=== PATIENT | female | born 2000 | race Caucasian/White ===

== ENCOUNTER 2019-05-24 13:42 | Emergency (ER) | payer OTHER, SELFPAY ==
[2019-05-24 13:48] VITALS: BP 163/82; PULSE 101; RESP 16; TEMP 37.6; O2SAT 100
--- NOTE | 2019-05-24 14:50 | ED.GENADULT ---
HPI - General Adult General Chief complaint: Upper Respiratory Infection <Amarjit Galicia PA-C - Last Filed: 05/24/19 14:58> Stated complaint: ST, SOB, weakness <Amarjit Galicia PA-C - Last Filed: 05/24/19 14:58> Time Seen by Provider: 05/24/19 13:50 <Amarjit Galicia PA-C - Last Filed: 05/24/19 14:58> Source: patient <Amarjit Galicia PA-C - Last Filed: 05/24/19 14:58> Mode of arrival: ambulatory <Amarjit Galicia PA-C - Last Filed: 05/24/19 14:58> Limitations: no limitations <Amarjit Galicia PA-C - Last Filed: 05/24/19 14:58> History of Present Illness HPI narrative: Patient is a 18-year-old female who presents to emergency department for evaluation of upper respiratory symptoms for the last several days notes that she has had sore throat congestion rhinorrhea cough productive of green phlegm. Patient notes she has been working but denies any known sick contacts. Patient notes feeling dyspneic patient denies vomiting or diarrhea . <Amarjit Galicia PA-C - Last Filed: 05/24/19 14:58> Related Data Allergies/adverse reactions: Allergies Allergy/AdvReac Type Severity Reaction Status Date / Time bupropion Allergy Unknown Depression Verified 05/24/19 13:51 duloxetine Allergy Unknown Depression Verified 05/24/19 13:51 <Amarjit Galicia PA-C - Last Filed: 05/24/19 14:58> Review of Systems Review of Systems: All systems reviewed & are unremarkable except as noted in HPI and below <Amarjit Galicia PA-C - Last Filed: 05/24/19 14:58> PMFSH Social History Social History: Social History (Updated 05/24/19 @ 14:51 by Amarjit Galicia PA-C) Smoking status: Never smoker <Amarjit Galicia PA-C - Last Filed: 05/24/19 14:58> Exam Narrative: Exam Narrative: GENERAL: Well-appearing, well-nourished, and in no acute distress. HEAD: Normocephalic, atraumatic. EYES: PERRLA and EOMI. ENT: Nares clear, no rhinorrhea or epistaxis. Mucous membranes moist. Oropharynx with erythema without tonsillar hypertrophy exudate or other lesions. NECK: Supple. No adenopathy or masses. CHEST: Clear to auscultation. No respiratory distress. No wheezes rales or rhonchi HEART: Regular rate and rhythm. No murmur heard. EXTREMITIES: Normal range of motion. No edema. SKIN: Warm, dry, no rash. NEURO: No focal deficits. Alert and oriented x3. Cranial nerves II through XII grossly intact PSYCH: Normal mood and affect. <JEN Burroughs Last Filed: 05/24/19 14:58> Course Course Emergency Course: Patient in the room in no distress aware of case findings treatment plan and diagnosis agreeing to follow-up as directed or to return if symptoms worsen or concerns <JEN Burroughs Last Filed: 05/24/19 14:58> Vital Signs Vital signs: Vital Signs Temperature 99.6 F 05/24/19 13:48 Pulse Rate 101 H 05/24/19 13:48 Respiratory Rate 16 05/24/19 13:48 Blood Pressure 163/82 H 05/24/19 13:48 Pulse Oximetry 100 05/24/19 13:48 Temperature 99.6 F 05/24/19 13:48 Pulse Rate 80 05/24/19 15:06 Respiratory Rate 18 05/24/19 15:06 Blood Pressure 103/74 05/24/19 15:06 Pulse Oximetry 100 05/24/19 15:06 <JEN Burroughs Last Filed: 05/24/19 14:58> Vital Signs Temperature 99.6 F 05/24/19 13:48 Pulse Rate 101 H 05/24/19 13:48 Respiratory Rate 16 05/24/19 13:48 Blood Pressure 163/82 H 05/24/19 13:48 Pulse Oximetry 100 05/24/19 13:48 Temperature 99.6 F 05/24/19 13:48 Pulse Rate 80 05/24/19 15:06 Respiratory Rate 18 05/24/19 15:06 Blood Pressure 103/74 05/24/19 15:06 Pulse Oximetry 100 05/24/19 15:06 <Elena Harris MD - Last Filed: 05/24/19 15:33> Medical Decision Making MDM Narrative Medical decision making narrative: Patient in the room afebrile nontoxic-appearing no distress aware of case findings treatment plan and diagnosis agreeing to follow-up as directed or to return
[2019-05-24 15:06] VITALS: BP 103/74; PULSE 80; RESP 18; O2SAT 100
== END 2019-05-24 15:16 | disposition home or self-care (01) ==
PROVIDERS: Emergency Provider Emergency Medicine
DX: J06.9 Acute upper respiratory infection, unspecified (principal)
CPT/HCPCS: 87081; 87880; 99283

== ENCOUNTER 2019-11-25 16:52 | Emergency (ER) | payer OTHER, SELFPAY ==
[2019-11-25 16:55] VITALS: BP 123/77; PULSE 93; RESP 18; TEMP 36.5; O2SAT 100
--- NOTE | 2019-11-25 17:04 | ED.GENADULT ---
HPI - General Adult General Chief complaint: Headache Stated complaint: migrane rahman, being treated for kidney infection Time Seen by Provider: 11/25/19 16:58 Source: patient History of Present Illness HPI narrative: Patient is a 18 y/o female complaining of generalized headache for 5 days. She describes her pain as pounding , and rates it as 10/10. She took Excedrin and Ibuprofen, which did not help. Of note, she was seen at [facility] 2 days ago for right flank pain and was diagnosed with a kidney infection and prescribed with Cipro. She states that her headache is worsen since that visit. She stats that she had a fever when she was seen for kidney infection, but she is not sure whether she still has a fever. She has some nausea and vomiting. She denies any neck pain or stiffness. Related Data Allergies Allergy/AdvReac Type Severity Reaction Status Date / Time bupropion Allergy Unknown Depression Verified 05/24/19 13:51 duloxetine Allergy Unknown Depression Verified 05/24/19 13:51 Review of Systems Constitutional: Constitutional: Reports as per HPI, Denies chills, Denies fever(s), Reports headache(s) and Denies weakness Eyes: Eyes: Denies blurry vision ENT: Reports headache(s) and Denies neck pain Cardiovascular: Cardiovascular: Denies chest pain and Denies dyspnea Respiratory: Respiratory: Denies cough and Denies dyspnea Gastrointestinal: Gastrointestinal: Denies abdominal pain, Denies diarrhea, Reports nausea and Reports vomiting Genitourinary: Genitourinary: Denies hematuria, Denies dysuria and Reports flank pain Musculoskeletal: Musculoskeletal: Denies back pain and Denies neck pain Neurologic: Reports headache(s) and Denies weakness [facility] Social History Social History Smoking status: Never smoker Exam Const: General: no acute distress and well developed Orientation/consciousness: oriented to person, oriented to place, oriented to time and patient oriented x3 HENMT: Head: normocephalic Ears: external ears normal General nose exam: Normal external nose present Eyes: General: appearance normal, both eyes and all related structures Conjunctivae: conjunctivae normal Neck: Neck: normal visual inspection and full ROM Chest: Chest palpation & inspection: normal inspection of the chest and no tenderness Resp: Effort & Inspection: normal respiratory effort Auscultation: clear to auscultation bilaterally Cardio: Rate: regular rate Rhythm: regular rhythm GI: GI Palp: No abdominal tenderness and Yes Soft to palpation Skin: General skin exam: normal color and turgor normal Neuro: General: oriented to person, oriented to place, oriented to time and patient oriented x3 Cranial nerves: Yes CN's II-XII intact bilaterally Cognition (Neuro): normal cognition Speech: normal speech Motor exam (neuro): 5/5 motor strength present throughout Sensory Exam: normal sensation Coordination: [id number] test normal and [id number]-[id number] test normal Extrem: General: normal to inspection, full ROM and no pedal edema Psych: Appearance: grossly normal Mental Status: mental status grossly normal Affect: normal affect Course Reevaluation(s) Reevaluation #1: Rechecked. Patient feels better. She states that her headache is resovled. Date: 11/25/19 Time: 18:40 Vital Signs Vital signs: Vital Signs Temperature 36.5 C 11/25/19 16:55 Pulse Rate 93 11/25/19 16:55 Respiratory Rate 18 11/25/19 16:55 Blood Pressure 123/77 11/25/19 16:55 Pulse Oximetry 100 11/25/19 16:55 Temperature 36.5 C 11/25/19 16:55 Pulse Rate 78 11/25/19 19:19 Respiratory Rate 18 11/25/19 19:19 Blood Pressure 132/78 11/25/19 19:19 Pulse Oximetry 99 11/25/19 19:19 Medical Decision Making Vital Signs Vital Signs: Vital Signs Temperature 36.5 C 11/25/19 16:55 Pulse Rate 93 11/25/19 16:55 Respiratory Rate 18 11/25/19 16:55 Blood Pressure 123/
[2019-11-25] MEDS: SODIUM CHLORIDE 0.9% IV 1,000 ML 999 ML IV CONT (17:27)
[2019-11-25] MEDS: KETOROLAC 30 MG/ML VIAL (*BKC) IV PUSH (17:28)
[2019-11-25] MEDS: METOCLOPRAMIDE HCL INJ 10 MG/2 ML VIAL IV PUSH (17:28)
[2019-11-25] MEDS: diphenhydrAMINE HCl INJ 50 MG/ML VIAL 25 MG IV PUSH (17:28)
[2019-11-25 17:35] LABS: Basophils Percent Auto 0.4 % (0.2-1.2); Eosinophils Percent Auto 0.4 % (0-4.4); Hematocrit 42.4 % (37.0-47.0); Hemoglobin 14.4 g/dL (12.0-15.0); Immature Granulocyte Absolute 0.03 K/mm3 (0.00-0.031); Immature Granulocyte Percent A 0.4 % (0-0.5); Lymphocytes Absolute Auto 1.24 K/mm3 (0.9-3.2); Lymphocytes Percent Auto 15.9 % (18.3-44.2); Mean Corpuscular Hemoglobin 30.4 pg (26-34); Mean Corpuscular Volume 89.5 fl (80-100); Mean Platelet Volume 11.5 fl (7.4-10.4); Monocytes Absolute Auto 0.9 K/mm3 (0.1-0.6); Monocytes Percent Auto 11.8 % (2.6-8.5); Neutrophils Absolute Auto 5.5 K/mm3 (1.3-6.7); Neutrophils Percent Auto 71.1 % (45.5-73.1); Platelet Count Result 196 k/mm3 (150-375); Red Blood Count 4.74 M/mm3 (4.2-5.4); Red Cell Distribution Width 11.7 % (11.5-14.5); White Blood Count 7.8 K/mm3 (4.5-10.0)
[2019-11-25 17:45] LABS: Alanine Aminotransferase 11 U/L (4-35); Albumin Level 4.4 g/dL (3.7-5.6); Alkaline Phosphatase 74 U/L (45-116); Anion Gap 14 mmol/L (8-16); Aspartate Amino Transferase 18 U/L (14-36); Bilirubin,Total 1.3 mg/dL (0.2-1.3); Blood Urea Nitrogen 8 mg/dL (8-21); Calcium 9.8 mg/dL (8.9-10.7); Carbon Dioxide 21 mmol/L (22-30); Chloride 102 mmol/L (98-107); Estimated CRCL calculation 98 ml/min; Estimated Glomerular Filt Rate > 60; Glucose 92 mg/dL (65-105); Potassium 3.8 mmol/L (3.4-5.0); Sodium 137 mmol/L (134-143)
[2019-11-25 17:45] LABS: Add Urine Microscopic? YES; Appearance Urine Clear (Clear); Bacteria Urine Trace /hpf; Bilirubin Urine Negative (Negative); Blood Urine 1+ (Negative); Color Urine Yellow (Yellow); Glucose Urine UA Negative (Negative); Ketones Urine 2+ mg/dL (Negative); Leukocyte Esterase Ur Negative LEU/UL (Negative); Mucus Urine Rare /lpf; Nitrate Urine Negative (Negative); Protein Urine Negative (Negative); Specific Grav Ur 1.013 (1.001-1.035); Squamous Epithelial Cell Urine Many /hpf (Few); Urobilinogen Urine Negative mg/dL (<2.0)
[2019-11-25 19:19] VITALS: BP 132/78; PULSE 78; RESP 18; O2SAT 99
== END 2019-11-25 19:20 | disposition home or self-care (01) ==
PROVIDERS: Emergency Provider Emergency Medicine
DX: R51.9 Headache, unspecified (principal)
CPT/HCPCS: 36415; 80053; 81001; 81025; 85025; 96361; 96374; 96375; 99284; J1200; J1885; J2765; J7030

== ENCOUNTER 2021-01-06 19:10 | Inpatient (IN) | payer OTHER, SELFPAY ==
[2021-01-06] VITALS (29 sets, daily range): BP systolic 117–219; BP diastolic 60–201; PULSE 65–97; TEMP 37.2; O2SAT 97–100; BMI 37.8
--- NOTE | 2021-01-06 19:10 | LDADM ---
This patient, Mary Martinez, was admitted to Labor/Delivery/Recovery 104 on 01/06/21 at 19:10. Plans for labor, pain management and were discussed with patient. Patient/family oriented to hospital policies and general routines including ID bracelet, bed and alarms, visiting hours, pain management, procedures, bathroom and other care routines, personal items, smoking policy, room service/diet and guest tray routines, security routines, and visiting hours. Patient/Family are encouraged to report perceived risks to care and to ask questions if they do not understand what they are told or what they should do. See OBIX for further documentation.
[2021-01-06 20:40] LABS: Basophils Percent Auto 0.2 % (0.2-1.2); Eosinophils Absolute Auto 0.1 K/mm3 (0-0.3); Eosinophils Percent Auto 1.1 % (0-4.4); Hematocrit 39.9 % (37.0-47.0); Hemoglobin 12.9 g/dL (12.0-15.0); Immature Granulocyte Absolute 0.03 K/mm3 (0.00-0.031); Immature Granulocyte Percent A 0.3 % (0-0.5); Immature Platelet Fraction Pct 15.9 % (0.9-11.2); Lymphocytes Absolute Auto 1.68 K/mm3 (0.9-3.2); Mean Corpuscular HGB Conc 32.3 g/dl (32-36); Mean Corpuscular Hemoglobin 27.7 pg (26-34); Mean Corpuscular Volume 85.8 fl (80-100); Mean Platelet Volume 13.5 fl (7.4-10.4); Monocytes Absolute Auto 0.8 K/mm3 (0.1-0.6); Monocytes Percent Auto 7.3 % (2.6-8.5); Neutrophils Absolute Auto 7.9 K/mm3 (1.3-6.7); Neutrophils Percent Auto 75.1 % (45.5-73.1); Platelet Count Result 216 k/mm3 (150-375); Red Blood Count 4.65 M/mm3 (4.2-5.4); Red Cell Distribution Width 14.6 % (11.5-14.5); White Blood Count 10.5 K/mm3 (4.5-10.0)
[2021-01-06 21:07] LABS: Alanine Aminotransferase 14 U/L (4-35); Albumin Level 3.8 g/dL (3.5-5.1); Alkaline Phosphatase 139 U/L (38-126); Anion Gap 9 mmol/L (8-16); Aspartate Amino Transferase 31 U/L (14-36); Bilirubin,Total 0.9 mg/dL (0.2-1.3); Blood Urea Nitrogen 11 mg/dL (7-17); Calcium 9.3 mg/dL (8.4-10.2); Carbon Dioxide 20 mmol/L (22-30); Chloride 106 mmol/L (98-107); Estimated CRCL calculation 126 ml/min; Estimated Glomerular Filt Rate > 60; Glucose 97 mg/dL (65-110); Potassium 4.3 mmol/L (3.4-5.0); Sodium 135 mmol/L (137-145)
[2021-01-06] MEDS: LACTATED RINGERS 1,000 ML 125 ML IV CONT (22:54)
[2021-01-06 22:56] LABS: Uric Acid 4.7 mg/dL (2.5-7.5)
--- NOTE | 2021-01-06 23:19 | WPDANESEPP ---
Anes - Eval Pre Procedure Procedure: Labor epidural Date/Time: 01/06/21 23:19 Surgeon: Mary Kay Preop Diagnosis: Abd pain with contractions Pre Op Diagnosis: labor Patient Data Age: 20 Gender: F Height: 1.63 m Weight: 100 kg Last Vital Signs Pulse 83 01/06/21 23:16 BP 150/71 H 01/06/21 23:16 Allergies Allergy/AdvReac Type Severity Reaction Status Date / Time bupropion Allergy Unknown Depression Verified 05/24/19 13:51 duloxetine Allergy Unknown Depression Verified 05/24/19 13:51 Laboratory Tests 01/06/21 01/06/21 01/06/21 20:27 20:27 20:27 WBC 10.5 K/mm3 H K/mm3 (4.5-10.0) RBC 4.65 M/mm3 M/mm3 (4.2-5.4) Hgb 12.9 g/dL g/dL (12.0-15.0) Hct 39.9 % % (37.0-47.0) MCV 85.8 fl fl (80-100) MCH 27.7 pg pg (26-34) MCHC 32.3 g/dl g/dl (32-36) RDW 14.6 % H % (11.5-14.5) Plt Count 216 k/mm3 k/mm3 (150-375) MPV 13.5 fl H fl (7.4-10.4) Immature Gran % (Auto) 0.3 % % (0-0.5) Neut % (Auto) 75.1 % H % (45.5-73.1) Lymph % (Auto) 16.0 % L % (18.3-44.2) Owen % (Auto) 7.3 % % (2.6-8.5) Eos % (Auto) 1.1 % % (0-4.4) Baso % (Auto) 0.2 % % (0.2-1.2) Lymph # (Auto) 1.68 K/mm3 K/mm3 (0.9-3.2) Owen # (Auto) 0.8 K/mm3 H K/mm3 (0.1-0.6) Eos # (Auto) 0.1 K/mm3 K/mm3 (0-0.3) Baso # (Auto) 0.0 K/mm3 K/mm3 (0.0-0.1) Abs Immat Gran (auto) 0.03 K/mm3 K/mm3 (0.00-0.031) Absolute Neuts (auto) 7.9 K/mm3 H K/mm3 (1.3-6.7) Absolute Nucleated RBC 0.0 K/mm3 K/mm3 (0.0-0.012) Nucleated RBC % 0.0 % % (0.0-0.2) % Immature Plt Fraction 15.9 % H % (0.9-11.2) Sodium Potassium Chloride Carbon Dioxide Anion Gap BUN Creatinine Estim Creat Clear Calc Estimated GFR Glucose Uric Acid Calcium Total Bilirubin AST ALT Alkaline Phosphatase Total Protein Albumin RPR Pending Blood Type A Positive Antibody Screen Negative 01/06/21 01/06/21 20:27 20:27 WBC RBC Hgb Hct MCV MCH MCHC RDW Plt Count MPV Immature Gran % (Auto) Neut % (Auto) Lymph % (Auto) Owen % (Auto) Eos % (Auto) Baso % (Auto) Lymph # (Auto) Owen # (Auto) Eos # (Auto) Baso # (Auto) Abs Immat Gran (auto) Absolute Neuts (auto) Absolute Nucleated RBC Nucleated RBC % % Immature Plt Fraction Sodium 135 mmol/L L mmol/L (137-145) Potassium 4.3 mmol/L mmol/L (3.4-5.0) Chloride 106 mmol/L mmol/L (98-107) Carbon Dioxide 20 mmol/L L mmol/L (22-30) Anion Gap 9 mmol/L mmol/L (8-16) BUN 11 mg/dL mg/dL (7-17) Creatinine 0.70 mg/dL mg/dL (0.7-1.0) Estim Creat Clear Calc 126 ml/min ml/min Estimated GFR > 60 (59 - ) Glucose 97 mg/dL mg/dL (65-110) Uric Acid 4.7 mg/dL mg/dL (2.5-7.5) Calcium 9.3 mg/dL mg/dL (8.4-10.2) Total Bilirubin 0.9 mg/dL mg/dL (0.2-1.3) AST 31 U/L U/L (14-36) ALT 14 U/L U/L (4-35) Alkaline Phosphatase 139 U/L H U/L (38-126) Total Protein 7.0 g/dL g/dL (6.3-8.2) Albumin 3.8 g/dL g/dL (3.5-5.1) RPR Blood Type Antibody Screen Patient hx anesthesia problems: none Family hx anesthesia problems: none Results Review: All pre-operative results and documents have been reviewed as part of the pre-operative evaluation. [facility] Past
[2021-01-07] VITALS (120 sets, daily range): BP systolic 116–145; BP diastolic 62–107; PULSE 67–104; RESP 18; TEMP 36.7–37.1; O2SAT 94–100
[2021-01-07 06:38] LABS: Rapid Plasma Reagin Non-Reactive (NonReactive)
--- NOTE | 2021-01-07 06:57 | WPDOBADMIT ---
Obstetrics - Admit Note Admission Note: record reviewed. No pertinent additions to the history and/or any subsequent changes in the physical findings that are not consistent with the expected course of the were found. admitted to in active labor. SVE , AROM large amount of meconium fluid. Additions to the history and/or subsequent changes in the physical findings follow. None.
--- NOTE | 2021-01-07 07:50 | PM.OBPRVD ---
OB - Delivery Note Procedure Delivery date: 01/07/21 Procedure: vaginal delivery Intrapartal events: None Induction method: none Delivery augmentation: rupture of membranes Delivery monitor: none, external FHT and external uterine Route of delivery: Episiotomy description: None Laceration Description: Labial (bilateral) Delivery repair: vicryl Quantitative Blood Loss (ml): 95 Anesthesia type: Epidural Disposition: floor Baby Date of : 01/07/21 Time of : 07:30 Weeks of gestation at delivery: 38 Infant gender: Male Weight (pounds): 7 Weight (ounces): 9 presentation: vertex position: Left Occiput Anterior Placenta delivery description: Spontaneous cord vessel description: 3 Vessels and Delayed Cord Clamping score one minute: 9 score five minutes: 9 Narrative: mother and baby in stable condition to warmer for evaluation for meconium
[2021-01-07] MEDS: OXYTOCIN 30 UNITS/NS 500 ML 30 UNITS/500 ML BAG 125 UNITS IV CONT (08:11)
[2021-01-07] MEDS: IBUPROFEN 600 MG TABLET PO ×2 (10:49→20:38)
[2021-01-07] MEDS: WITCH HAZEL 40 PADS 1 PAD TOPICAL (10:50)
[2021-01-07] MEDS: BENZOCAINE 20% AER SPR (*SP) 56 GM CAN 1 SPRAY TOPICAL (10:50)
--- NOTE | 2021-01-07 16:59 | PC.NURSE ---
Patient transferred to post room #291 ambulatory from labor and delivery. Support person present. Oriented to unit, room, information board, rooming in, admission packet and security measures. Patient verbalizes understanding.
[2021-01-08 03:40] VITALS: BP 111/69; PULSE 68; RESP 16; TEMP 36.2; O2SAT 100
[2021-01-08 04:51] LABS: Hematocrit 27.7 % (37.0-47.0)
[2021-01-08 08:00] VITALS: BP 131/90; PULSE 73; RESP 20; TEMP 36.3; O2SAT 100
[2021-01-08] MEDS: DOCUSATE SODIUM 100 MG CAPSULE PO ×2 (08:19→15:03)
[2021-01-08] MEDS: POLYSACCHARIDE IRON COMPLEX 150 MG CAPSULE PO ×2 (08:19→15:04)
[2021-01-08] MEDS: IBUPROFEN 600 MG TABLET PO ×3 (08:20→23:32)
--- NOTE | 2021-01-08 12:10 | P.PNOB_ITS ---
OB - PN: Subj Subjective Date/time seen: 01/08/21 12:10 Patient comments: no complaints and pain well controlled baby status: doing well [place] feeding status: exclusively bottle feeding OB - PN: Obj Data Labs CBC & Chem 7: 01/08/21 04:00 01/06/21 20:27 Labs: Laboratory Results - last 24 hr 01/08/21 04:00 Hgb 9.0 L D Hct 27.7 L OB - PN A/P Assessment and Plan (1) , delivered: Code(s): O80 - Encounter for full-term uncomplicated delivery Status: Acute Plan day: 1 Plan: routine care Time Spent With Patient Time: Total time spent is greater than 50% in coordination of care (as documented) at patient's floor/unit and/or counseling patient: Time with patient: less than 15 minutes Exam Narrative: NAD abdomen soft, nontender, fundus firm below the umbilicus Extremities nontender, 1+ edema
--- NOTE | 2021-01-08 14:21 | WPDANLDPN2 ---
Anes-Prog Note L&D Date/Time: 01/08/21 14:21 Comfortable throughout: labor and delivery Neuraxial method: epidural Epidural/Spinal procedure site: clean & non-tender Neuro status: Neuro function grossly intact. Cardiovascular status: normal Respiratory status: normal Airway patency: baseline Mental status: baseline Post-Op hydration status: normal Vital Signs: Last Vital Signs Temp 36.3 C L 01/08/21 08:00 Pulse 73 01/08/21 08:00 Resp 20 01/08/21 08:00 BP 131/90 01/08/21 08:00 Pulse Ox 100 01/08/21 08:00 Pain score (VAS): 0 Post-procedural complaints: none Patient feedback: Patient satisfied with anesthetic care.
[2021-01-08] MEDS: BENZOCAINE 20% AER SPR (*SP) 56 GM CAN 1 SPRAY TOPICAL (15:03)
[2021-01-08] MEDS: WITCH HAZEL 40 PADS 1 PAD TOPICAL (15:04)
[2021-01-08 19:50] VITALS: BP 139/85; PULSE 85; RESP 16; TEMP 36.9; O2SAT 99
--- NOTE | 2021-01-08 23:45 | PC.NURSE ---
Patient viewed the discharge video Mother & Baby Care, The First Two Weeks . Patient was given the opportunity and encouraged to ask questions. Patient verbalized understanding of information shared and has been given the mother/baby guide for home reference.
[2021-01-09] MEDS: IBUPROFEN 600 MG TABLET PO (07:48)
[2021-01-09 08:00] VITALS: BP 133/85; PULSE 66; PULSE 85; RESP 16; RESP 18; TEMP 36.7; O2SAT 100
[2021-01-09] MEDS: WITCH HAZEL 40 PADS 1 PAD TOPICAL (08:00)
[2021-01-09] MEDS: DOCUSATE SODIUM 100 MG CAPSULE PO (08:00)
[2021-01-09] MEDS: POLYSACCHARIDE IRON COMPLEX 150 MG CAPSULE PO (08:00)
[2021-01-09] MEDS: BENZOCAINE 20% AER SPR (*SP) 56 GM CAN 1 SPRAY TOPICAL (08:00)
--- NOTE | 2021-01-09 10:28 | PC.NURSE ---
Self care and infant care discharge instructions given including follow up visit date and time. Mother verbalized understanding. No questions or concerns voiced. Very pleasant and cooperative. FOB at side.
--- NOTE | 2021-01-09 10:33 | P.PNOB_ITS ---
OB - PN: Subj Subjective Date/time seen: 01/09/21 10:33 Patient comments: no complaints baby status: doing well [place] feeding status: exclusively bottle feeding OB - PN: Obj Data Labs CBC & Chem 7: 01/08/21 04:00 01/06/21 20:27 OB - PN A/P Assessment and Plan (1) , delivered: Code(s): O80 - Encounter for full-term uncomplicated delivery Status: Acute Plan day: 2 Plan: routine care and discharge home Time Spent With Patient Time: Total time spent is greater than 50% in coordination of care (as documented) at patient's floor/unit and/or counseling patient: Time with patient: less than 15 minutes Exam Narrative: NAD abdomen soft, nontender, fundus firm below the umbilicus Extremities nontender, 1+ edema
--- NOTE | 2021-01-09 10:34 | P.DS_ITS ---
DS: Admitting Diagnosis Discharge Date 01/09/21 Admitting Diagnosis term IUP DS: Discharge Diagnosis Discharge Diagnosis (1) , delivered: Code(s): O80 - Encounter for full-term uncomplicated delivery Status: Acute DS: Summary Hospital Course Hospital Course: Mary had an uncomplicated vaginal delivery and course. Status at Discharge Functional status at discharge: independent ambulation Time Spent with Patient Time attestation: Total time spent providing and/or coordinating discharge services: Exam Narrative: NAD abdomen soft, appropriately tender Ext non tender, 1+ edema Discharge Plan Discharge Attending physician on discharge: Mindi Muñiz Discharging Clinician: Mindi Muñiz Anticipated Discharge Date/Time: 01/09/21 10:33 Patient Disposition: Home, Self-Care Activity: pelvic rest Diet: regular Patient Instructions: Antibiotic Form Stand Alone Forms: General Discharge Information Follow-up/Referrals: Mindi Muñiz MD [Physician] - 1 Week Discharge Medications: Continued Classic 28 mg iron- 800 mcg Tablet 1 tablet PO DAILY RF: 0 Date of admission: 01/06/21 19:10 Primary Care Provider: PHYSICIAN,AUTOMATED PROCESS OPERATOR Admitting Provider: Mindi Muñiz Attending physician on admission: Mindi Muñiz Condition: Stable
[2021-01-11 09:15] VITALS: BP 125/83; PULSE 67; RESP 16; TEMP 36.8; O2SAT 100
== END 2021-01-09 13:15 | disposition home or self-care (01) | DRG 560 ==
LOC: ANHLDR 20:51 → ANHOB2 01-07 17:03
PROVIDERS: Advanced Practice Midwife; Admitting Provider Obstetrics & Gynecology; Visit Provider Obstetrics & Gynecology
DX: O77.0 Labor and delivery complicated by meconium in amniotic fluid (principal); Z37.0 Single live birth; Z3A.39 39 weeks gestation of pregnancy; O36.8330 Maternal care for abnormalities of the fetal heart rate or rhythm, third trimester, not applicable or unspecified; O99.344 Other mental disorders complicating childbirth; F41.8 Other specified anxiety disorders; F31.9 Bipolar disorder, unspecified; O70.0 First degree perineal laceration during delivery
CPT/HCPCS: 36415; 80053; 84550; 85014; 85018; 85025; 85055; 86592; 86850; 86900; 86901; A9270; J2590; J2795; J7120

== ENCOUNTER 2023-03-31 17:56 | Emergency (ER) | payer OTHER, SELFPAY ==
[2023-03-31 18:05] VITALS: BP 114/73; PULSE 87; RESP 16; TEMP 36.7; O2SAT 99
--- NOTE | 2023-03-31 18:06 | ED.NAVMDI ---
HPI - Nausea/Vomiting/Diarrhea General Chief complaint: Nausea/Vomiting/Diarrhea Stated complaint: Fatigue/Nausea Time Seen by Provider: 03/31/23 18:06 Source: patient Mode of arrival: ambulatory Limitations: no limitations History of Present Illness HPI Narrative: 32-year-old female presents with complaint of fatigue, headaches, nausea and diarrhea for 5 days. Afebrile. No abdominal pain. Has not vomited. Drinking plenty of water but states has had decreased appetite. Patient reports that she is currently working 2 jobs. 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 Patient reports that she has been very exhausted. Recently called primary care physician for medication to help her sleep. Start Ambien 4 days ago. does not think that symptoms are related to taking Ambien. Patient requesting work note. States she cannot his work and wants to go back tomorrow. All systems reviewed and negative except as noted. Related Data Home Medications Medication Instructions Recorded Confirmed clonazepam 1 mg tablet 0.5 - 1 mg PO PRN PRN Anxiety 03/31/23 03/31/23 escitalopram oxalate 20 mg tablet 20 mg PO DAILY 03/31/23 03/31/23 norethindrone (contraceptive) 0.35 0.35 mg PO DAILY 03/31/23 03/31/23 mg tablet zolpidem 5 mg tablet 5 mg PO HS PRN Sleep 03/31/23 03/31/23 Allergies Allergy/AdvReac Type Severity Reaction Status Date / Time amoxicillin AdvReac Unknown Numbness Verified 03/31/23 18:20 bupropion AdvReac Unknown Depression Verified 03/31/23 18:20 duloxetine AdvReac Unknown Depression Verified 03/31/23 18:20 Penicillins AdvReac Unknown Numbness Verified 03/31/23 18:20 Review of Systems Review of Systems: CONSTITUTIONAL: Denies fever, chills, or sweats. Reports fatigue. EYES: Denies visual changes, redness, or discharge. ENT: Denies rhinorrhea, congestion, sore throat, or otalgia. CARDIOVASCULAR: Denies chest pain, palpitations, or edema. RESPIRATORY: Denies cough or dyspnea. GASTROINTESTINAL: Denies abdominal pain And vomiting. Reports nausea, diarrhea. GENITOURINARY: Denies dysuria or hematuria. SKIN: Denies rash or itching. MUSCULOSKELETAL: Denies back pain, joint pain, or myalgia. NEUROLOGIC: Denies headache, numbness, or weakness. PSYCHIATRIC: Denies anxiety or depression. All other systems reviewed are negative, except as documented in HPI. FORMER[facility], [facility] Past Medical History Medical History Anxiety and depression Bipolar 1 disorder Migraines Morbid obesity and not yet delivered Pseudotumor cerebri syndrome Family History Family History Mother History of blood clots Diabetes mellitus Anxiety Depression Fibromyalgia Vertigo Bipolar 1 disorder Sleep apnea Father Depression Bipolar 1 disorder Sibling ADHD ADD (attention deficit disorder) Social History Social History Smoking packs per day: 0.5 Smoking cigarettes per day: 10.0 Years smoked: 4 Smoking pack-years: 2.00 Smoking status: Former smoker Substance use: never Spiritual care concerns: No Course Course Level of Care: Express Care Visit Vital Signs Vital signs: Vital Signs Temperature 36.7 C 03/31/23 18:05 Pulse Rate 87 03/31/23 18:05 Respiratory Rate 16 03/31/23 18:05 Blood Pressure 114/73 03/31/23 18:05 Pulse Oximetry 99 03/31/23 18:05 Oxygen Delivery Room Air 03/31/23 18:05 Temperature 36.7 C 03/31/23 18:20 Pulse Rate 87 03/31/23 18:20 Respiratory Rate 16 03/31/23 18:20 Blood Pressure 114/73 03/31/23 18:20 Pulse Oximetry 99 03/31/23 18:20 Oxygen Delivery Room Air 03/31/23 18:20 Reviewed MDM - Nausea/Vomiting/Diarrhea MDM Narrative Medical decision making narrative: negative influenza. Patient prescribed Imodium and Zofran for
[2023-03-31 18:20] VITALS: BP 114/73; PULSE 87; RESP 16; TEMP 36.7; O2SAT 99
== END 2023-03-31 19:00 | disposition home or self-care (01) ==
PROVIDERS: Emergency Provider Nurse Practitioner Family; PCP Physician Assistant
DX: A08.4 Viral intestinal infection, unspecified (principal); Z87.891 Personal history of nicotine dependence; E66.01 Morbid (severe) obesity due to excess calories; Z68.33 Body mass index [BMI] 33.0-33.9, adult; F41.9 Anxiety disorder, unspecified; F32.A Depression, unspecified
CPT/HCPCS: 87804; 99213; G0463

== ENCOUNTER 2023-11-26 13:44 | Emergency (ER) | payer OTHER, SELFPAY ==
--- NOTE | 2023-11-26 13:48 | ED.GENADULT ---
HPI - General Adult General Chief complaint: Nausea/Vomiting/Diarrhea Stated complaint: Nausea Time Seen by Provider: 11/26/23 14:20 Source: patient and RN notes reviewed Mode of arrival: ambulatory Limitations: no limitations History of Present Illness HPI narrative: 22-year-old female presents concern for nausea for about 5 days. She reports she has been taking Zofran which helps the nausea temporarily. She denies abdominal pain, vomiting, diarrhea. She is unsure of her last menstrual period. Reports body aches. She denies fever, chills, sweats. Related Data Home Medications Medication Instructions Recorded Confirmed clonazepam 1 mg tablet 0.5 - 1 mg PO PRN PRN Anxiety 03/31/23 11/26/23 escitalopram oxalate 20 mg tablet 20 mg PO DAILY 03/31/23 11/26/23 norethindrone (contraceptive) 0.35 0.35 mg PO DAILY 03/31/23 11/26/23 mg tablet zolpidem 5 mg tablet 5 mg PO HS PRN Sleep 03/31/23 11/26/23 ferrous sulfate 325 mg (65 mg 325 mg PO DAILY 11/26/23 11/26/23 iron) tablet (FeroSul) Allergies Allergy/AdvReac Type Severity Reaction Status Date / Time amoxicillin AdvReac Unknown Numbness Verified 11/26/23 13:48 bupropion AdvReac Unknown Depression Verified 11/26/23 13:48 duloxetine AdvReac Unknown Depression Verified 11/26/23 13:48 Penicillins AdvReac Unknown Numbness Verified 11/26/23 13:48 Review of Systems Review of Systems: CONSTITUTIONAL: Denies malaise, chills, sweats, or fever. ENT: Denies rhinorrhea, congestion, sinus pain, otalgia or sore throat. CARDIOVASCULAR: Denies chest pain, palpitations, or edema. RESPIRATORY: Denies cough or dyspnea. GASTROINTESTINAL: Denies abdominal pain, vomiting, diarrhea, bloody, or mucous stools. Reports nausea GENITOURINARY: Denies dysuria, frequency, urgency or hematuria. MUSCULOSKELETAL: Reports myalgia. NEUROLOGIC: Denies headache. All systems reviewed & are unremarkable except as noted in HPI and below PMFSH Past Medical History Medical History Anxiety and depression Bipolar 1 disorder Migraines Morbid obesity and not yet delivered Pseudotumor cerebri syndrome Family History Family History Mother History of blood clots Diabetes mellitus Anxiety Depression Fibromyalgia Vertigo Bipolar 1 disorder Sleep apnea Father Depression Bipolar 1 disorder Sibling ADHD ADD (attention deficit disorder) Social History Social History Smoking packs per day: 0.5 Smoking cigarettes per day: 10.0 Years smoked: 4 Smoking pack-years: 2.00 Smoking status: Former smoker Substance use: never Spiritual care concerns: No Comments At time of signature, agree with nursing past medical, surgical, social and family history. There is no relevant family history pertinent to the presenting complaint Exam Narrative: GENERAL: Well-appearing, well-nourished, and in no acute distress. HEAD: Normocephalic, atraumatic. EYES: PERRLA, conjunctivae clear, and EOMI. ENT: Nares clear, turbinates pink, no rhinorrhea or epistaxis. Mucous membranes moist. Oropharynx without edema, erythema, or lesions. Tonsils not enlarged and without exudate. NECK: Supple. No lymphadenopathy CHEST: Speaks in full sentences. No respiratory distress. HEART: Regular rate and rhythm. ABDOMEN: Soft, flat, nondistended, nontender. No guarding, rebound tenderness, or rigidity. No pulsatile masses. Bowel sounds present in all four quadrants. SKIN: Warm, dry, no rash. NEURO: Alert and oriented x3. PSYCH: Normal mood and affect Course Course Emergency Course: Patient is aware of diagnosis, understands and agrees to treatment plan. Anticipatory guidance given. Patient agrees to follow-up as directed and is aware of reasons to seek care at the emergency department. Portions of this record may have been cre
[2023-11-26 13:53] VITALS: BP 133/56; PULSE 73; RESP 20; TEMP 37.5; O2SAT 100
[2023-11-26 14:49] LABS: BEDSIDEPREGUCG Positive (Negative)
[2023-11-26 14:49] LABS: EDUAAPPEAR Cloudy; EDUABILI Negative (Negative); EDUABLOOD Negative (Negative); EDUACOLOR1 Dark; EDUAGLUCOSE Negative (Negative); EDUAKETONE Negative (Negative); EDUALEUKO Trace (Negative); EDUANITRATE Negative (Negative); EDUAPROTEIN Negative (Negative); EDUAUROBILI 0.2
== END 2023-11-26 15:00 | disposition home or self-care (01) ==
PROVIDERS: Emergency Provider Nurse Practitioner; PCP Physician Assistant
DX: Z32.01 Encounter for pregnancy test, result positive (principal); Z87.891 Personal history of nicotine dependence
CPT/HCPCS: 81003; 81025; 87086; 99213; G0463